=== PATIENT | female | born 1935 | race Caucasian/White ===

== ENCOUNTER 2022-07-05 20:20 | Emergency (ER) | payer MEDICARE, OTHER ==
[~2022-07-05] VITALS: Ht 167.6 cm; Wt 62.6 kg
[2022-07-05 20:26] VITALS: BP 90/46
--- NOTE | 2022-07-05 20:33 | NUR ---
zaina, from snf, found sitting on the floor, denies any pain, no injury on blood thinner, unwitnessed fall. PT a/ox3. Tolerating R/A well with no Resp distress. Safety measures in place .
--- NOTE | 2022-07-05 21:42 | NUR ---
APERTURE MASK ETCHER AT PT'S BEDSIDE
--- NOTE | 2022-07-05 22:50 | NUR ---
PT TAKEN TO CT [facility]IA [facility]
--- NOTE | 2022-07-05 23:40 | NUR ---
REPORT GIVEN TO BELEM SLAUGHTER FROM THE [facility] [place] [facility]
--- NOTE | 2022-07-05 23:51 | NUR ---
[facility] WILL TRANSPORT PATIENT IN 30 TO 45 MINUTES BACK TO FACILITY.
--- NOTE | 2022-07-06 00:04 | NUR ---
[facility] AT PT'S BEDSIDE TO D/C PT TO THE [facility] [place]. REPORT GIVEN TO [facility] EMT
== END 2022-07-06 00:48 | disposition home or self-care (01) ==
LOC: ER 20:22
DX: S09.90XA Unspecified injury of head, initial encounter (principal); R51.9 Headache, unspecified; Z91.013 Allergy to seafood; W18.30XA Fall on same level, unspecified, initial encounter; Y93.89 Activity, other specified; Y92.89 Other specified places as the place of occurrence of the external cause; Y99.8 Other external cause status
CPT/HCPCS: 70450-TC; 72170-TC